=== PATIENT | male | born 1995 | race Caucasian/White ===

== ENCOUNTER 2024-10-23 13:20 | Emergency (ER) | payer OTHER, SELFPAY ==
[2024-10-23 13:30] VITALS: BP 152/92; PULSE 97; RESP 20; TEMP 36.9; O2SAT 100
--- NOTE | 2024-10-23 13:48 | ED_ITS ---
HPI - Skin/Abscess/Foreign Bdy General Chief complaint: Skin/Abscess/Foreign Body Stated complaint: right leg pain Source: patient Mode of arrival: ambulatory Limitations: no limitations History of Present Illness HPI narrative: Patient is a 28 year old male who presents to the clinic for complaints of redness, warmth, and swelling to his right calf. Patient stated that he got a tattoo on Tuesday. Shortly after he noticed the redness. Denies using any over the counter medications. Denies any shortness of breath, fever, nausea, vomiting, or diarrhea. Related Data Allergies Allergy/AdvReac Type Severity Reaction Status Date / Time iohexol (From contrast - CT, Allergy Intermediate Rash Verified 10/23/24 13:45 X-RAY) Sulfa (Sulfonamide Allergy Intermediate Rash Verified 10/23/24 13:45 Antibiotics) Cat Dander Allergy Intermediate Itching Uncoded 10/23/24 13:45 Review of Systems Review of Systems: CONSTITUTIONAL: Denies body aches, fever, chills, or sweats. EYES: Denies visual changes, redness, or discharge. ENT: Denies rhinorrhea, congestion CARDIOVASCULAR: Denies chest pain, palpitations, or edema. RESPIRATORY: Denies cough or dyspnea. GASTROINTESTINAL: Denies abdominal pain, nausea, vomiting, or diarrhea. SKIN: Reports redness, swelling, warmth to the right lower leg. MUSCULOSKELETAL: Denies back pain, joint pain, or myalgia. NEUROLOGIC: Denies headache, numbness, tingling, or weakness. All systems reviewed & are unremarkable except as noted in HPI and below PMFSH Comments At time of signature, I have reviewed and agree with nursing past medical, surgical, social and family history unless otherwise noted. Please see nursing chart for further information. There is no relevant family history pertinent to the presenting complaint. Exam Narrative: GENERAL: Well-appearing HEAD: Normocephalic, atraumatic. EYES: ?conjunctivae clear, and EOMI. ENT: Mucous membranes moist. Oropharynx without edema, erythema or lesions. NECK: Supple. No lymphadenopathy CHEST: Clear to auscultation. HEART: Regular rate and rhythm. SKIN: Warm, dry. ?Right lateral leg noted to have erythema, warmth, and edema. No drainage. NEURO: ?Alert and oriented x3.? Course Course Level of Care: Express Care Visit Vital Signs Vital signs: Vital Signs Temperature 98.4 F 10/23/24 13:30 Pulse Rate 97 10/23/24 13:30 Respiratory Rate 20 10/23/24 13:30 Blood Pressure 152/92 H 10/23/24 13:30 Pulse Oximetry 100 10/23/24 13:30 Oxygen Delivery Room Air 10/23/24 13:30 Temperature 98.4 F 10/23/24 13:30 Pulse Rate 97 10/23/24 13:30 Respiratory Rate 20 10/23/24 13:30 Blood Pressure 152/92 H 10/23/24 13:30 Pulse Oximetry 100 10/23/24 13:30 Oxygen Delivery Room Air 10/23/24 13:30 Reviewed MDM - Skin/Abscess/Foreign Bdy MDM Narrative Medical decision making narrative: Discussed physical exam findings. Cephalexin prescription given.Advised supportive measures and signs/symptoms to go to the ER. Pt is appropriate for outpatient treatment and follow up. Differential Diagnosis Differential diagnosis: Likely cellulitis, contact dermatitis and other (skin infection.) Critical Care Time Critical Care Time Critical Care Time: No Discharge Plan Discharge Clinical Impression: Bacterial skin infection of leg Qualifiers: Laterality: right Qualified Code(s): L03.115 - Cellulitis of right lower limb Patient Disposition: Home Condition: Stable Instructions: Acute Wounds (DC) Additional Instructions: Take antibiotic as prescribed. Clean with soap and water only; Avoid using alcohol and peroxide. Elevate the affected area if possible Alternate Tylenol/ibuprofen for as needed for pain. Apply moist heat 3-4 times daily for 10-15 minutes. Please schedule a follow up visit with your personal physician for further evaluation and treatment within 3-5days OR if your symptoms persist, change or worsen significantly before you can contact your personal physician then please, without delay, go to the emergency department for further evaluation Patient Language: Congolese Prescriptions: New cephalexin 500 mg capsule 500 mg PO TID 7 Days Qty: 21 0RF Follow-up/Referrals: Joesph,Donny Felix MD [Primary Care Provider] - Time of Disposition: 13:54
== END 2024-10-23 14:00 | disposition home or self-care (01) ==
PROVIDERS: PCP Internal Medicine
DX: L03.115 Cellulitis of right lower limb (principal); I10 Essential (primary) hypertension
CPT/HCPCS: 99203; G0463

== ENCOUNTER 2025-01-01 19:32 | Emergency (ER) | payer OTHER, SELFPAY ==
--- OUTSIDE RECORDS SUMMARY | 2025-01-01 17:34 | XMS_ITS | Encounter Summary ---
Author Organization [facility] Healthcare Address [address] [place] [address] Care Team Providers Care Senior Sales Operations Manager Name Role Phone Williams Pink MD Primary Care Provider + Reason for Visit * Reason Comments Neck Pain Encounter Details Date Type Department Care Team (Late st Contact Info) Description 01/01/2025 5:34 PM CDT Emergency [facility] Emergency Department [address] [place] [id number] Social History Tobacco Use Types Packs/Day Years Used Date Smoking Tobacco: Every Day Smokeless Tobacco: Never Personal Safety Answer Date Recorded Have you ever been in or are you currently in a harmful physical or emotional relationship or is someone making you feel afraid or unsafe? 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 Gender Identity Not on file Sexual Orientation Not on file documented as of this encounter Last Filed Vital Signs Vital Sign Reading Time Taken Comments Blood Pressure 147/99 01/01/2025 5:43 PM CDT Pulse 85 01/01/2025 5:41 PM CDT Temperature 36.8 C (98.3 F) 01/01/2025 5:41 PM CDT Respiratory Rate 16 01/01/2025 5:41 PM CDT Oxygen Saturation 99% 01/01/2025 5:41 PM CDT Inhaled Oxygen Concentration - - Weight 77.1 kg (170 lb) 01/01/2025 5:41 PM CDT Height 180.3 cm (5' 11) 01/01/2025 5:41 PM CDT Body Mass Index 23.71 01/01/2025 5:41 PM CDT documented in this encounter ED Notes * Ana Fung RN - 01/01/2025 5:40 PM CDT Pt to ED for c/o increased neck pain today, no new injury. Pt reports he has been having neck pain from a previous injury for a few months and is supposed to be getting an MRI. Pt noticed today stabbing pain in the left side of his neck. documented in this encounter Plan of Treatment Pending Results Name Type Priority Associated Diagnoses Date /Time CT Cervical Spine WO Contrast Imaging ED 01/01/2025 6:43 PM CDT Scheduled Orders Name Type Priority Associated Diagnoses Orde r Schedule CT Cervical Spine WO Contrast Imaging ED Once for 1 Occur rences starting 01/01/2025 until 01/01/2025 documented as of this encounter Visit Diagnoses Not on filedocumented in this encounter Care Teams Senior Sales Operations Manager Relationship Specialty Start Date End Date Williams Pink MD [address] [address] PCP - General Internal Medicine 11/19/24 documented as of this encounter
[2025-01-01 19:35] VITALS: BP 172/117; BP 188/107; PULSE 85; RESP 20; TEMP 37.2; O2SAT 100
--- OUTSIDE RECORDS SUMMARY | 2025-01-01 19:36 | XMS_ITS | Clinical Summary ---
Author Organization [facility] Address [address] [place] [address] Care Team Providers Care Compact Assembler Name Role Phone Unavailable Primary Care Provider Unavailabl e Source Comments [facility],non-owned Affiliates and Associated Physician Practices is amultiple site organization consisting of ambulatory clinics and hospital sitesin [place], [place], [place] and [place]. This disclosure is being madepursuant to the Care Everywhere program and may not contain all information available regarding this patient. Last updated 18.[facility] Allergies Active Allergy Reactions Criticality Noted Date Comments Cat Hair Extract Other Medium 01/31/2019 Itchy eyes and skin burnett with prolonged exosure Sulfa Drugs Unknown Low 05/13/2016 In childhood unaware of reaction Medications * Be aware that medications may not be up to date on this document. Alwaysverify current medications with the patient. No known medications Active Problems Problem Noted Date Diagnosed Date Chest pain in adult 01/30/2019 Dizzy 01/30/2019 SVT (supraventricular tachycardia) 01/30/2019 Closed fracture of mandible with routine healing Social History Tobacco Use Types Packs/Day Years Used Date Smoking Tobacco: Some Days Cigarettes Smokeless Tobacco: Former Chew, Snuff Comments:1-2 daily Alcohol Use Standard Drinks/Week Comments Yes 0 (1 standard drink = 0.6 oz pur e alcohol) socially rare Sex and Gender Information Value Date Recorded Sex Assigned at Not on file Legal Sex Male 9:10 AM CDT Gender Identity Not on file Sexual Orientation Not on file Last Filed Vital Signs Vital Sign Reading Time Taken Comments Blood Pressure 133/70 02/07/2019 3:45 PM CDT Pulse 98 02/07/2019 3:45 PM CDT Temperature 36.8 C (98.2 F) 02/07/2019 1:20 PM CDT Respiratory Rate 22 02/07/2019 3:45 PM CDT Oxygen Saturation 98% 02/07/2019 3:45 PM CDT Inhaled Oxygen Concentration - - Weight 58.5 kg (129 lb) 02/07/2019 7:27 AM CDT Height 180.3 cm (5' 11) 02/07/2019 7:27 AM CDT Body Mass Index 17.99 02/07/2019 7:27 AM CDT Plan of Treatment Health Maintenance Due Date Last Done Comments HIV SCREENING 2008 HEPATITIS C SCREENING 04/21/2011 DTAP/TDAP/TD VACCINES (1 - Tdap) 2012 HEPATITIS B VACCINE (1 of 3 - 19+ 3-dose series) 2012 HPV VACCINE (1 - 3-dose SCDM series) 2020 COVID-19 VACCINE (1 - 2023-2 5 season) 2024 DEPRESSION SCREENING 05/02/2024 INFLUENZA VACCINE (#1) 2024 ZOSTER VACCINE (1 of 2) 2043 HIB VACCINE Aged Out No longer eligi ble based on patient's age to complete this topic MENINGOCOCCAL (Group B) VACC INE SHARED DECISION-MAKING Aged Out No longer eligibl e based on patient's age to complete this topic MENINGOCOCCAL GROUPS A/C/Y/W VACCINE Aged Out No longer eligible b ased on patient's age to complete this topic PNEUMOCOCCAL VACCINE Aged Out No long er eligible based on patient's age to complete this topic Medical Devices Implanted Type Area Clinical Assistant Device Identifier Shelf Expiration Date Model / Serial / Lot Screw 2mm 5mm Slf-Tap Xpn Mxlfcl Implanted:Qty : 1 on 02/07/2019 by Mairno Ferreira MD at [facility] N/A: Mandible [employer] Craniomaxill[employer]acial [id number] / / Tmplt Sz 4 Hl Mndb Fx Plate Nonster Lf Implanted:Qty : 1 on 02/07/2019 by Marino Ferreira MD at [facility] N/A: Mandible [employer]axillofacial [id number] / / Plate Strut Troch Bone Implanted:Qty : 1 on 02/07/2019 by Marino Ferreira MD at [facility] N/A: Mandible [employer]iomaxill[employer]acial [id number] / / Screw 2mm 5mm Lck Xpn Mxlfcl Leibinger Implanted:Qty : 3 on 02/07/2019 by Marino Ferreira MD at [facility] N/A: Mandible [place] Craniomaxill[employer]acial [id number] / / Screw 2mm 8mm Lck Xpn Mndb Leibinger Unv Implanted:Qty : 5 on 02/07/2019 by Marino Ferreira MD at [facility] N/A: Mandible [employer] Craniomaxill[employer]acial [id number] / / Screw 2mm 10mm Lck Xpn Mxlfcl Leibinger Implanted:Qty : 5 on 02/07/2019 by Marino Ferreira MD at [facility] N/A: Mandible [employer] Craniomaxillofacial [id number] / / Screw 2mm 12mm Lck Xpn Mxlfcl Leibinger Implanted:Qty : 2 on 02/07/2019 by Marino Ferreira MD at [facility] N/A: Mandible [employer] Craniomaxillofacial [id number] / / Plate 4 Hl Bar Mndb [id number] Mini Str Implanted:Qty : 1 on 02/07/2019 by Marino Ferreira MD at [facility] N/A: Mandible [place] Craniomaxillofacial [id number] / / Plate 4 Hl Bar Mndb 1.5mm Leibinger Unv Implanted:Qty : 1 on 02/07/2019 by Marino Ferreira MD at [facility] N/A: Mandible [place] Craniomaxillofacial [id number] / / Explanted Type Area Clinical Assistant Device Identifier Shelf Expiration Date Model / Serial / Lot Screw 2mm 8mm Slf Drl Xpn Lgt Wire Mndb Explanted:Qty : 2 on 02/07/2019 at [facility] N/A: Mandible [employer] Craniomaxillofacial [id number] / / Screw 2mm 12mm Slf Drl Xpn Lgt Wire Mndb Explanted:Qty : 2 on 02/07/2019 at [facility] N/A: Mandible [place] Craniomaxillofacial [id number] / / Advance Directives * Full Code (Latest Code Status on File) Date Activated Date Inactivated Comments 02/06/2019 8:49 PM 02/07/2019 5:27 PM
--- OUTSIDE RECORDS SUMMARY | 2025-01-01 19:36 | XMS_ITS | Clinical Summary ---
Author Organization [facility] Address [address] [place] [address] Care Team Providers Care Hvac Commercial Salesperson Name Role Phone Williams Pink MD Primary Care Provider + Allergies Active Allergy Reactions Criticality Noted Date Comments Iodinated Contrast Media Syncope High 11/19/2024 Iodine Hives Medium 11/19/2024 Sulfa (Sulfonamide Antibiotics) Medications naproxen (NAPROSYN) 500 mg tabletIndicati ons:Cervical strain, acute, initial encounter Take 1 tablet (500 mg total) by mouth 2 (two) times a day with meals PRN pain. Take with food. Collaborating physician Braulio Law MD 20 tablet 5 Active tiZANidine (ZANAFLEX) 2 mg tabletIndicati ons:Cervical strain, acute, initial encounter Take 1 tablet (2 mg total) by mouth every 8 (eight) hours as needed (Take as directed to relax muscles) Collaborating physician Braulio Law MD 20 tablet 5 Active Active Problems Problem Noted Date Diagnosed Date Cervical strain, acute, initial encounter 2024 Encounters Date Type Department Care Team Description 01/01/2025 5:34 PM CDT Emergency [facility] Emergency Department [address] [place] [address] 11/19/2024 3:00 PM CDT - 11/19/2024 3:51 PM CDT Emergency [facility] Emergency Department [address] [place] [address] Cervical strain, acute, initial encounter (Primary Dx) Discharge Disposition: Discharge to home or self care from Last 3 Months Social History Tobacco Use Types Packs/Day Years [...] on file 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 Gender Identity Not on file Sexual Orientation Not on file Obstetrics History Last Filed Vital Signs Vital Sign Reading [...] Mass Index 23.71 01/01/2025 5:41 PM CDT Plan of Treatment Health Maintenance Due Date Last Done Comments Depression Screening 1993 Hepatitis C Screening 1993 DTaP/Tdap/Td Vaccine (1 - Tdap) 2004 Varicella Vaccines (1 of 2 - 13+ 2-dose series) 2005 Hepatitis B Screening 2011 Regular Well Visit/Exam 18-64 2011 Pneumococcal vaccine <65 (1 of 2 - PCV) 2012 HPV Vaccines (1 - 3-dose SCDM series) 2020 Influenza Vaccine (#1) 2024 Procedures Procedure Name Priority Date/Time Associated Diagnosis Comments XR SPINE CERVICAL COMPLETE 4 OR 5 VW ED 11/19/2024 1:10 PM CDT from Last 3 Months Results * XR Spine Cervical Complete 4 or 5 Views (11/19/2024 1:10 PM CDT) Anatomical Region Laterality Modality Spine N/A Computed Radiogr aphy 11/19/2024 1:21 PM CDT Narrative 11/19/2024 1:22 PM CDT EXAM DESCRIPTION: XR SPINE CERVICAL COMPLETE 4 OR 5 VW REASON FOR STUDY: pain Pt states that he pulled something in his neck at 6pm on [place] Pt states that he felt a shock in his shoulder and down to his groin. Pt states it has been getting worse. TECHNIQUE: 5 radiographic view(s) of the cervical spine. COMPARISON: 12/15/2013 FINDINGS: There is no definite evidence of acute fracture or subluxation involving the cervical spine. There are minimal to mild multilevel degenerative changes cervical spine with minimal disc space narrowing, minimal endplate osteophytosis, and uncovertebral hypertrophy. The bilateral bony neural foramina are grossly patent. The visualized paravertebral soft tissues are grossly unremarkable. IMPRESSION: 1. Minimal to mild multilevel cervical spondylosis without definite evidence of acute fracture or subluxation. THIS IS AN ELECTRONICALLY VERIFIED FINAL REPORT 11/19/2024 1:22 PM - Electronically signed by Chandrika Daugherty D.O. PS: PS Report ID: [id number] Reading Location: [id number] Procedure Note Chandrika Daugherty, DO - 11/19/2024 EXAM DESCRIPTION: XR SPINE CERVICAL COMPLETE 4 OR 5 VW REASON FOR STUDY: pain Pt states that he pulled something in his neck at 6pm on [place] Pt states that he felt a shock in his shoulder and down to his groin. Pt states ithas been getting worse. TECHNIQUE: 5 radiographic view(s) of the cervical spine. COMPARISON: 12/15/2013 FINDINGS: There is no definite evidence of acute fracture or subluxation involvingthe cervical spine. There are minimal to mild multilevel degenerative changes cervical spine with minimal disc space narrowing, minimal endplate osteophytosis, and uncovertebral hypertrophy. The bilateral bony neural foramina are grossly patent. The visualized paravertebral soft tissuesare grossly unremarkable. IMPRESSION: 1. Minimal to mild multilevel cervical spondylosis without definiteevidence of acute fracture or subluxation. THIS IS AN ELECTRONICALLY VERIFIED FINAL REPORT 11/19/2024 1:22 PM - Electronically signed by Chandrika Daugherty D.O. PS: PS Report ID: [id number] Reading Location: [id number] Lynne Payne MD IMG XR PROCEDURES Final R esult from Last 3 Months Insurance [facility] Care Teams Hvac Commercial Salesperson Relationship Specialty Start Date End Date Williams Pink MD [address] [place] [address] PCP - General Internal Medicine 11/19/24
--- OUTSIDE RECORDS SUMMARY | 2025-01-01 19:36 | XMS_ITS | Clinical Summary ---
Author Organization [facility] Address [address] [place] [address] Phone Care Team Providers Care Coal Drier Operator Name Role Phone Provider, None Primary Care Provider Unavailabl e Allergies Active Allergy Reactions Criticality Noted Date Comments Sulfa Antibiotics Unknown 05/13/2016 Medications Metoprolol Succinate (TOPROL XL PO) Take by mouth. Active ALPRAZolam (XANAX) 0.5 MG Tablet Take 1 Tab by mouth 3 times daily as needed. 30 Tab 0 05/13/2016 Active oxyCODONE (ROXICODONE) 5 MG/5ML Solution Take 5 mg by mouth every 4 hours as needed. Active Social History Tobacco Use Types Packs/Day Years Used Date Smoking Tobacco: Some Days Smokeless Tobacco: Never Alcohol Use Standard Drinks/Week Comments No 0 (1 standard drink = 0.6 oz pur e alcohol) Sex and Gender Information Value Date Recorded Sex Assigned at Not on file Legal Sex Male 7:51 PM CDT Gender Identity Not on file Sexual Orientation Not on file Last Filed Vital Signs Vital Sign Reading Time Taken Comments Blood Pressure 114/64 01/29/2019 10:00 PM CDT Pulse 90 01/29/2019 10:00 PM CDT Temperature 36.2 C (97.1 F) 01/29/2019 6:52 PM CDT Respiratory Rate 16 01/29/2019 6:52 PM CDT Oxygen Saturation 100% 01/29/2019 10:00 PM CDT Inhaled Oxygen Concentration - - Weight 64.9 kg (143 lb) 01/29/2019 6:52 PM CDT Height 182.9 cm (6') 01/29/2019 6:52 PM CDT Body Mass Index 19.39 01/29/2019 6:52 PM CDT Plan of Treatment Health Maintenance Due Date Last Done Comments Hepatitis C Virus (HCV) Screening 1993 TdaP Immunization 1993 Hepatitis B Immunization (1 of 3 - 19+ 3-dose series) 2012 Human Papillomavirus (HPV) Immunization (1 - 3-dose SCDM series) 2020 Influenza Immunization (#1) 2024 SARS-COV-2 Immunization ( season) 2024 Respiratory Syncytial Virus (RSV) Immunization (Adult) (1 - 1-dose 75+ series) 2068 Meningococcal Immunization (ACWY) Aged Out No longer eligible based on patient's age to complete this topic Pneumococcal Immunization Combined Aged Out No longer eligible based on patient's age to complete this topic Rotavirus Immunization Aged Out No lo nger eligible based on patient's age to complete this topic Care Teams Coal Drier Operator Relationship Specialty Start Date End Date Provider, None [place] PCP - General 05/13/16
--- NOTE | 2025-01-01 19:37 | ED.DENTAL ---
HPI - Dental/Oral General Stated complaint: tooth pain causing neck pain Time Seen by Provider: 01/01/25 19:35 Source: patient Mode of arrival: ambulatory Limitations: no limitations History of Present Illness HPI Narrative: Abraham is a 29-year-old male patient presenting to the clinic today with complaints of dental pain x1 day. He reports pain and swelling to the left upper molars. States that dentist has told him he needs all his teeth removed. Denies any fevers, chills, body aches. Feels as though the left upper maxilla area is swollen and tender. Related Data Allergies Allergy/AdvReac Type Severity Reaction Status Date / Time iohexol (From contrast - CT, Allergy Intermediate Rash Verified 01/01/25 19:50 X-RAY) Sulfa (Sulfonamide Allergy Intermediate Rash Verified 01/01/25 19:50 Antibiotics) Cat Dander Allergy Intermediate Itching Uncoded 01/01/25 19:50 Review of Systems Review of Systems: Pertinent positives per HPI. Patient denies any fever, chills, rash, headache, visual changes, dizziness, cough, runny nose, sore throat, shortness of breath, chest pain, palpitations, nausea, vomiting, diarrhea, constipation, abdominal pain, or any urinary issues. PMFSH Comments At the time of my signature, I reviewed and agree with the nursing past medical, surgical, social, and family history. There is no relevant family history pertinent to the patient complaint. Exam Narrative: General: Well-developed, well nourished, in no apparent distress Head: Normocephalic, atraumatic Eyes: Pupils equally round and reactive to light bilaterally, EOM intact, sclera and conjunctive clear, no discharge, lids normal Ears: TMs intact and clear, ear canals clear, no drainage, grossly hearing normal. Nose: Nares patent, no discharge, no inflammation, no sinus tenderness. Mouth: Oropharynx without lesions or masses, poor dentition, multiple dental decay, gingival swelling, MMM. Tenderness to palpation over the left maxilla without palpable abscess Neck: Supple, trachea midline, no enlargement of anterior or posterior cervical nodes, no thyroid masses or goiter palpable. Cardio: Regular rate and rhythm, s1 and s2 normal, no murmur appreciated. Resp: Clear to auscultation bilaterally anteriorly and posteriorly, no rhonchi, rales, wheezing or rubs Course Course Emergency Course: Portions of this record may have been created with voice recognition software. Level of Care: Express Care Visit Vital Signs Vital signs: Vital Signs Temperature 37.2 C 01/01/25 19:35 Pulse Rate 85 01/01/25 19:35 Respiratory Rate 20 01/01/25 19:35 Blood Pressure 172/117 H 01/01/25 19:35 Pulse Oximetry 100 01/01/25 19:35 Oxygen Delivery Room Air 01/01/25 19:35 Temperature 37.2 C 01/01/25 19:35 Pulse Rate 85 01/01/25 19:35 Respiratory Rate 20 01/01/25 19:35 Blood Pressure 188/107 H 01/01/25 19:35 Pulse Oximetry 100 01/01/25 19:35 Oxygen Delivery Room Air 01/01/25 19:35 Vital signs reviewed MDM - Dental/Oral MDM Narrative Medical decision making narrative: At the time of visit patient is resting comfortably on the exam table. Patient appears to be nontoxic. Complaints of dental pain x1 day. He reports pain and swelling to the left upper molars. States that dentist has told him he needs all his teeth removed. Denies any fevers, chills, body aches. Feels as though the left upper maxilla area is swollen and tender. On exam patient has very poor dentition with multiple decayed teeth in the left upper maxilla with gingival swelling. No palpable abscess. Patient does not have the money at this time to purchase antibiotics. States he will be able to pick them up on . Rocephin 1 g IM given in the clinic today. Rocephin 1 g IM mixed with lidocaine given in the clinic today. Plan: Patient has dental pain/dental infection. Prescription for amoxicillin was sent to the pharmacy. Rocephin 1 g was given in the clinic today Supportive measures were discussed with the patient and they voiced understanding discharge instructions and agrees to treatment plan. Return precautions reviewed Differential Diagnosis Differential diagnosis: Likely gingival abscess, dental caries, toothache, dental abscess, fracture of tooth and aphthous ulcer Discharge Plan Discharge Clinical Impression: Infected dental caries Patient Disposition: Home Condition: Stable Instructions: Antibiotic Form, Toothache (ED) Additional Instructions: Rocephin 1 g IM given in the clinic today. Take medications as prescribed-amoxicillin Increase fluids and stay well hydrated May take Tylenol/Motrin as needed for pain or fever May apply Orajel to the affected area to help alleviate pain May apply warm or cool compress to the affected area to help alleviate pain Follow-up with your dentist as soon as possible Patient Language: Romanian Prescriptions: New amoxicillin 875 mg tablet 875 mg PO Q12H 10 Days Qty: 20 0RF Follow-up/Referrals: Joesph,Donny Felix MD [Primary Care Provider] Time of Disposition: 19:53 Quality NIHSS Nursing Documentation ED NIHSS nursing documentation: reviewed/agree
[2025-01-01] MEDS: cefTRIAXone 1 GM, LIDOCAINE 1% LOCAL INJ 2.1 ML IM (20:00)
== END 2025-01-01 20:16 | disposition home or self-care (01) ==
PROVIDERS: Emergency Provider Nurse Practitioner Family; PCP Internal Medicine
DX: K02.9 Dental caries, unspecified (principal); I10 Essential (primary) hypertension; K21.9 Gastro-esophageal reflux disease without esophagitis
CPT/HCPCS: 96372; 99213; G0463; J0696; J2003